=== PATIENT | female | born 1990 ===

== ENCOUNTER → 2018-04-12 17:23 | Outpatient (REF) | payer OTHER, SELFPAY ==
[2018-04-16 11:40] LABS: QuantiFERON TB NEGATIVE (Negative)
[2018-04-16 13:56] LABS: RPR Screen Nonreactive (Nonreactive)
== END ==
LOC: LAB 17:23
PROVIDERS: Visit Provider Family Medicine Adult Medicine
DX: Z00.00 Encounter for general adult medical examination without abnormal findings (principal)
CPT/HCPCS: 86480; 86592; 87591